=== PATIENT | male | born 1960 ===

== ENCOUNTER 2016-09-14 12:06 | Emergency (ER) | payer OTHER, MEDICARE ==
[2016-09-14 14:49] VITALS: BP 163/93
--- NOTE | 2016-09-14 17:04 | Emergency Department Report ---
- General Chief Complaint: Extremity Injury, Lower Stated Complaint: RIGHT FOOT SWOLLEN Time Seen by Provider: 09/14/16 16:47 Source: patient Mode of arrival: Ambulatory Limitations: No Limitations - History of Present Illness Initial Comments: Patient here reported right ankle ulcers since 2009. Patient sees out of town the knees at [facility] for treatment for 28 days. He said he needs to address into his right ankle changed. He said the dressing was changed yesterday but it 's draining and needs to be changed again. Patient said he gets also on and off for the same area. Denies any fever or chills. Denies any nausea vomiting.Pain Is 7 out of 10 to her right ankle. He said his blood sugars at 90 this morning. -: year(s) Extremity Location: Right: Ankle (chronic wound with drainage) Place: home Patient Tetanus UTD: Yes Context: other ( diabetic wound) Associated Symptoms: pain Treatments Prior to Arrival: bandage - Related Data Allergies Allergy/AdvReac Type Severity Reaction Status Date / Time No Known Allergies Allergy Unverified 09/14/16 14:51 ED Review of Systems ROS: Stated complaint: RIGHT FOOT SWOLLEN Other details as noted in HPI Comment: All other systems reviewed and negative Constitutional: denies: chills, fever Respiratory: no symptoms reported Cardiovascular: denies: chest pain, palpitations, edema, syncope Gastrointestinal: denies: nausea, vomiting Musculoskeletal: arthralgia. denies: back pain Skin: denies: rash Neurological: denies: headache ED Past Medical Hx - Past Medical History Previous Medical History?: Yes Hx Hypertension: Yes Hx Diabetes: Yes Hx Psychiatric Treatment: Yes (PTSD) Additional medical history: NEUROPATHY - Surgical History Past Surgical History?: Yes Additional Surgical History: RIGHT 4TH FINGER SURGERY - Family History Family history: hypertension - Social History Smoking Status: Current Every Day Smoker Substance Use Type: Prescribed ED Physical Exam - General Limitations: No Limitations, Language Barrier General appearance: alert, in no apparent distress - Head Head exam: Present: atraumatic, normocephalic, normal inspection - Neck Neck exam: Present: normal inspection, full ROM. Absent: tenderness, meningismus, lymphadenopathy - Respiratory Respiratory exam: Present: normal lung sounds bilaterally. Absent: respiratory distress, chest wall tenderness - Cardiovascular Cardiovascular Exam: Present: normal rhythm, tachycardia, normal heart sounds - GI/Abdominal GI/Abdominal exam: Present: soft, normal bowel sounds. Absent: distended, tenderness, guarding, rebound, rigid - Extremities Exam Extremities exam: Present: normal inspection, full ROM, tenderness (right ankle) , normal capillary refill. Absent: pedal edema, joint swelling, calf tenderness - Expanded Upper Extremity Exam right ankle and site Elbow exam: Present: ecchymosis - Neurological Exam Neurological exam: Present: alert, oriented X3, normal gait, reflexes normal. Absent: motor sensory deficit - Psychiatric Psychiatric exam: Present: normal affect, normal mood - Skin Skin exam: Present: warm, dry, other (open wound right ankle) - Expanded Skin Exam Expanded Distribution of rash: RLE (right ankle) Description of rash: Present: size (2 x 2 cm), tenderness, discharge. Absent: erythematous, swelling ED Course Vital Signs 09/14/16 14:43 Temperature 98.4 F Pulse Rate 109 H Respiratory 20 Rate Blood Pressure 163/93 O2 Sat by Pulse 100 Oximetry Vital Signs 09/14/16 09/14/16 14:43 18:40 Temperature 98.4 F Pulse Rate 109 H 88 Respiratory 20 Rate Blood Pressure 163/93 O2 Sat by Pulse 100 Oximetry - Reevaluation(s) Reevaluation #1: 09/14/16 18:32 wound care to chronic ulcer on right ankle. ED Medical Decision Making - Lab Data Lab Results 09/14/16 Range/Units 17:48 WBC 6.8 (4.5-11.0) K/mm3 RBC 3.99 (3.65-5.03) M/mm3 Hgb 10.6 L (11.8-15.2) gm/dl Hct 33.4 L (35.5-45.6) % MCV 84 (84-94) fl MCH 27 L (28-32) pg MCHC 32 (32-34) % RDW 16.8 H (13.2-15.2) % Plt Count 321 (140-440) K/mm3 Lymph % (Auto) 29.2 (13.4-35.0) % Dare % (Auto) 8.3 H (0.0-7.3) % Eos % (Auto) 1.6 (0.0-4.3) % Baso % (Auto) 0.7 (0.0-1.8) % Lymph # 2.0 (1.2-5.4) K/mm3 Dare # 0.6 (0.0-0.8) K/mm3 Eos # 0.1 (0.0-0.4) K/mm3 Baso # 0.0 (0.0-0.1) K/mm3 Seg Neutrophils % 60.2 (40.0-70.0) % Seg Neutrophils # 4.1 (1.8-7.7) K/mm3 - Radiology Data Radiology results: report reviewed X-ray of ankle revealed no acute fracture or dislocation. Soft tissue swelling and no mention of osteomyelitis. - Medical Decision Making ED course: Patient with chronic ulcer to right ankle. Patient dressing change. Yesterday at [facility]. He is also on clindamycin 300 mg 4 times a day. Report from [facility]. Patient said he has had that also for over 7 years and it's been on and off. He said his blood sugar this morning was 90. POC blood sugars at 97. CBC normal white count and reflects mild anemia. [place] was reported to 28 days for treatment. I told patient that he she continues clindamycin. X-ray was negative for any fracture or dislocation and there are no mention of osteomyelitis. Wound care done at bedside. Patient is ambulatory. discharged home in stable condition. Critical care attestation.: If time is entered above; I have spent that time in minutes in the direct care of this critically ill patient, excluding procedure time. ED Disposition Clinical Impression: Chronic wound of extremity Disposition: DISCHARGED TO HOME OR SELFCARE Is pt being admited?: No Does the pt Need Aspirin: No Condition: Stable Instructions: Chronic Wound Care (ED), Wound Healing and Your Diet (ED) Additional Instructions: keep Affected area clean and dry. Refer to discharge instruction paperwork for Wound care clinic. Call on Friday to schedule an appointment. Referrals: [facility] [Outside] - 09/16/16 [facility] [Outside] - 3-5 Days Forms: Accompanied Note, Work/School Release Form(ED)
--- NOTE | 2016-09-14 17:32 | XRay Report ---
FINAL REPORT PROCEDURE: XR ANKLE 3 RT TECHNIQUE: Right ankle, three views HISTORY: rt ankle chronic wound COMPARISON: No prior studies are available for comparison. FINDINGS: No fracture or dislocation is seen. No focal cortical erosion is identified. There is circumferential soft tissue swelling. The ankle mortise and talar dome are intact. IMPRESSION: No acute fracture or dislocation is identified
[2016-09-14 18:24] LABS: Basophils % (Auto) 0.7 % (0.0-1.8); Eosinophils % (Auto) 1.6 % (0.0-4.3); Hematocrit 33.4 % (35.5-45.6); Hemoglobin 10.6 gm/dl (11.8-15.2); Mean Corpuscular HGB Conc 32 % (32-34); Mean Corpuscular Hemoglobin 27 pg (28-32); Mean Corpuscular Volume 84 fl (84-94); Platelet Count 321 K/mm3 (140-440); Red Blood Count 3.99 M/mm3 (3.65-5.03); Red Cell Distribution Width 16.8 % (13.2-15.2); White Blood Count 6.8 K/mm3 (4.5-11.0)
== END 2016-09-14 18:52 | disposition home or self-care (01) ==
LOC: ED 12:06
DX: E11.622 Type 2 diabetes mellitus with other skin ulcer (principal); I10 Essential (primary) hypertension; F43.10 Post-traumatic stress disorder, unspecified; F17.200 Nicotine dependence, unspecified, uncomplicated
CPT/HCPCS: 36415; 82962; 85025; 99284